=== PATIENT | female | born 1970 | race Caucasian/White ===

== ENCOUNTER 2020-05-14 09:56 | Outpatient (CLI) | payer OTHER, SELFPAY ==
--- NOTE | 2020-05-14 10:06 | MR_ITS ---
WS: [id number] MRI HEAD WITH CONTRAST TECHNIQUE: Sagittal T1, T2 axial, T2 axial FLAIR, axial susceptibility weighted imaging, axial diffus ion weighted images, and coronal T2 images were obtained. Pre and post-T1 axial and post T1 coronal i mages. ADC and FSPGR images. CLINICAL INFORMATION: BRAIN MASS COMPARISON: MRI April 17, 2019 FINDINGS: Again seen is the right parafalcine enhancing meningioma measuring 1.2 x 1.0 x 1.5 cm unchanged from previous. No significant surrounding edema or mass effect. Again seen is the enhancing lesion along t he left cavernous sinus and supraclinoid ICA extending to the orbital apex. This abuts the left ICA a nd M1 segment unchanged. This is also consistent with an additional meningioma. No underlying edema. This measures 1.3 x 1.5 x 0.8 cm unchanged. This contacts the prechiasmatic left optic nerve at the o rbital apex. No underlying edema. No restricted diffusion to suggest acute ischemia. Mild small vessel changes. Mild parenchymal volume loss. Normal posterior fossa. Normal vascular flow voids at the skull base. No extra-axial fluid col lections. No evidence of mass or mass effect. Paranasal sinuses and mastoid air cells are well aerate d. Temporal lobes and hippocampal formations are normal in appearance. Normal optic chiasm. No hemosi jaspreet on susceptibly weighted images. MR/MR head wo/w con [id number] IMPRESSION: 1. No change in the previously described right frontal parafalcine meningioma. No underlying edema. 2. In addition no change involving the left parasellar meningioma extending al meghan the supraclinoid left ICA and proximal left M1 segment. This extends superi rosa to the orbital apex unchanged. No underlying edema. Cavernous carotid gene ry appears patent. 3. No visualized edema in the left optic nerve. 4. Mild small vessel changes unchanged. 5. No other interval changes.
== END 2020-05-14 09:57 | disposition home or self-care (01) ==
LOC: RADSHAW 10:01
PROVIDERS: PCP Nurse Practitioner Family; Visit Provider Neurological Surgery
DX: G93.89 Other specified disorders of brain (principal)
CPT/HCPCS: 70553; A9579

== ENCOUNTER 2021-06-02 12:56 | Outpatient (CLI) | payer OTHER, SELFPAY ==
--- NOTE | 2021-06-02 | MR_ITS ---
WS: [id number] MRI BRAIN WITH AND WITHOUT CONTRAST HISTORY: BENIGN NEOPLASM OF MENINGES COMPARISON: 05/14/2020 TECHNIQUE: Multiplanar imaging performed through the brain with MultiHance 20 ml's IV. Stable RIGHT parafalcine enhancing meningioma measuring 15 x 13 x 14 mm. Diffuse moderate enhancement with no adjacent surrounding edema. Also again noted is the diffusely enhancing lesion along the LEF T cavernous sinus extending into the supraclinoid region and to the orbital apex. This is consistent with an additional meningioma which abuts the LEFT ICA and M1 segment. This lesion measures 13 x 10 x 11 mm without significant change. Although the measurements have not significantly changed the lesio n has slightly greater mass effect upon the posterior LEFT frontal lobe. There also may be slight bob rowing of the LEFT M1 segment. No susceptibility artifacts or prior lacunar infarcts. Normal ventricles. Clivus and pituitary gland are normal. Visualized posterior fossa and brainstem are also normal. Paranasal sinuses: Small air-fluid levels in the maxillary sinuses and mild mucoperiosteal thickening is new. There is mild mucoperiosteal thickening throughout the remaining sinuses. Mastoid air cells: Normal. Calvarium and scalp: Normal. MR/MR head wo/w con [id number] IMPRESSION: 1. Although the measurements have not significantly increased in size there ma y be slightly more mass effect upon the LEFT frontal lobe and encasement of the LEFT M1 segment secondary to the meningioma centered in the LEFT cavernous sin us. Meningioma measures 13 x 10 x 11 mm. Suggest six-month MRI follow-up with horacio chowdhury to continue to document for possible increase in size. 2. Stable RIGHT parafalcine meningioma measuring 15 x 13 x 14 mm. 3. New pansinusitis.
[2021-06-02] MEDS: gadobenate dimeglumine 20 mL vial IV (14:36)
== END 2021-06-02 12:57 | disposition home or self-care (01) ==
PROVIDERS: PCP Nurse Practitioner Family; Visit Provider Physician Assistant Surgical
DX: D32.9 Benign neoplasm of meninges, unspecified (principal); J32.4 Chronic pansinusitis
CPT/HCPCS: 70553; A9577

== ENCOUNTER → 2021-12-11 15:52 | Outpatient (BNVA) | payer OTHER, SELFPAY | PROVIDERS: PCP Nurse Practitioner Family; Visit Provider Nurse Practitioner Women's Health | DX: N93.9 Abnormal uterine and vaginal bleeding, unspecified (principal) | CPT/HCPCS: 76830 ==

== ENCOUNTER → 2021-12-16 12:13 | Outpatient (BNVA) | payer OTHER, SELFPAY | PROVIDERS: PCP Nurse Practitioner Family; Visit Provider Nurse Practitioner Women's Health | DX: N93.9 Abnormal uterine and vaginal bleeding, unspecified (principal) | CPT/HCPCS: 84443; 85025 ==

== ENCOUNTER 2022-01-16 15:34 | Outpatient (CLI) | payer OTHER, SELFPAY ==
--- NOTE | 2022-01-16 16:05 | MR_ITS ---
WS: [id number] MRI BRAIN WITH AND WITHOUT CONTRAST HISTORY: BENIGN NEOPLASM OF MENINGES COMPARISON: 06/02/2021, 05/14/2020 and 05/14/2019 TECHNIQUE: Multiplanar imaging performed through the brain with MultiHance 20 ml's IV. Stable RIGHT parafalcine enhancing meningioma with dural tail. Well-circumscribed intensely enhancing mass measures 16 x 14 x 15 mm which has slightly increased in size since 05/14/2020 (12 x 10 x 15 mm) . Most recent measurement on 06/02/2021, 15 x 13 x 14 mm. Very slight mass effect upon the RIGHT front al lobe. No midline shift or adjacent edema. There is an additional enhancing lesion along the LEFT cavernous sinus and supraclinoid LEFT carotid artery extending towards the orbital apex. This is a lobulated mass measuring 13 x 13 x 15 mm. As com pared to 05/14/2020 no significant increase in size. There is slight mass effect upon the LEFT A1 segm ent and supraclinoid carotid artery and proximal LEFT M1 segment. No occlusion. There is slight mass effect upon the LEFT optic nerve at the orbital apex. No progressive mass effect. No underlying edema . No acute infarcts. Very mild chronic microvascular ischemic changes in the white matter. No hemorrhag e. No new enhancing lesions. No hydrocephalus. Normal enhancement of the dural venous sinuses. Visualized brainstem is normal. Paranasal sinuses: Small air-fluid levels in the maxillary sinuses. Mastoid air cells: Normal. Calvarium and scalp: Normal. MR/MR head wo/w con [id number] IMPRESSION: 1. Mild increase in size of the LEFT RIGHT frontal parafalcine meningioma sinc e 05/14/2020. Meningioma measures 16 x 14 x 15 mm today with slight increase fro m 15 x 13 x 14 mm as noted on 05/14/2020. No adjacent edema. 2. No significant change in the LEFT parasellar meningioma partially encasing the LEFT supraclinoid ICA and the proximal LEFT A1 and M1 segments. Lobulated m ass measures 13 x 13 x 15 mm. 3. Small stable chronic small vessel ischemic disease.
[2022-01-16] MEDS: gadobenate dimeglumine 20 mL vial IV (17:24)
== END 2022-01-16 15:35 | disposition home or self-care (01) ==
PROVIDERS: PCP Nurse Practitioner Family; Visit Provider Neurological Surgery
DX: D32.9 Benign neoplasm of meninges, unspecified (principal); I67.82 Cerebral ischemia
CPT/HCPCS: 70553

== ENCOUNTER → 2022-02-06 14:03 | Outpatient (BNVA) | payer OTHER, SELFPAY | PROVIDERS: PCP Nurse Practitioner Family; Visit Provider Obstetrics & Gynecology | DX: Z20.822 Contact with and (suspected) exposure to COVID-19 (principal); N93.9 Abnormal uterine and vaginal bleeding, unspecified | CPT/HCPCS: 87635 ==

== ENCOUNTER 2022-02-10 09:42 | Day surgery (SDC) | payer OTHER, SELFPAY ==
[2022-02-09 13:27] VITALS: BMI 45.1
[2022-02-10] VITALS (9 sets, daily range): BP systolic 131–199; BP diastolic 92–121; PULSE 83–101; RESP 14–20; TEMP 36.1–36.6; O2SAT 94–100
[2022-02-10 10:09] LABS: OR HCG Qualitative Urine Negative (Negative)
[2022-02-10] MEDS: sodium chloride 0.9% 1,000 ML 30 ML IV (10:20)
[2022-02-10] MEDS: ketorolac 30 mg/mL INJ IVP (10:20)
[2022-02-10 10:30] LABS: Glucose Point of Care 107 mg/dL (70-110)
--- NOTE | 2022-02-10 10:53 | W.PM.OPSUD ---
Surgery/Procedure H&P Update DATE OF PROCEDURE: February 10, 2022 DATE H&P PERFORMED: 02/06/22 H&P UPDATE INFORMATION: I have reviewed H&P completed within last 30 days, I have examined patient prior to procedure and No changes to prior documentation PREOP DIAGNOSIS: AUB PLANNED PROCEDURE: Operation Date: 02/10/22 11:10 Proposed Procedures p Hysteroscopy w/ [id number]/abnormal ut bleeding(Not Applicable) - Porsha Kendall MD Related Problem List Diagnoses (1) Abnormal uterine bleeding (AUB):
[2022-02-10 10:55] LABS: Hematocrit 38.7 % (37.0-47.0); Hemoglobin 11.9 g/dL (11.5-15.3); Lymphocytes # 1.2 10^3/uL (0.8-4.8); Lymphocytes % 21.8 %; Mean Corpuscular HGB Conc 30.7 g/dL (30.0-36.0); Mean Corpuscular Hemoglobin 24.2 pg (28.0-34.0); Mean Corpuscular Volume 78.7 fl (81-99); Mean Platelet Volume 9.3 fL (7.4-10.4); Monocytes # 0.3 10^3/uL (0.2-0.9); Monocytes % 5.3 %; Neutrophils # 3.99 10^3/uL (1.8-7.7); Neutrophils % 72.5 %; Nucleated Red Blood Cells % 0 %; Platelet Count 314 10^3/cmm (130-400); Red Blood Count 4.92 10^6/uL (4.1-5.3); Red Cell Distribution Width 17.5 % (12.1-15.1); White Blood Count 5.5 10^3/uL (4.0-10.0)
--- NOTE | 2022-02-10 11:26 | P.ANESASSM_ITS ---
Pre-Anesthetic Assessment Height/Weight: Height 1.73 m Weight 134.717 kg Temp Pulse Resp BP Pulse Ox 97.9 F 96 18 199/121 99 02/10/22 10:04 02/10/22 10:04 02/10/22 10:04 02/10/22 10:04 02/10/22 10:04 Preop Diagnosis: AUB Operation Date: 02/10/22 11:10 Proposed Procedures p Hysteroscopy w/ [id number] ut bleeding(Not Applicable) - Porsha Kendall MD Familial anesthetic complications: None Was Beta Mitzy taken within 24 hours: N/A Was Clonidine taken within 24 hours: N/A Last intake: Intake Last Liquid Date 02/09/22 Last Liquid Time 23:00 Last Solid Date 02/09/22 Last Solid Time 22:00 Social No alcohol and No tobacco Exam alert, oriented x 3, clear to auscultation bilaterally and regular rate & rhythm Airway Submandibular: within normal limits Cervical ROM: within normal limits Mallampati: Class II Dentition: full CV/HEM Hypertension Metabolic Morbid Obesity Anesthetic Plan ASA status: 3 Anesthesia: General Risk of > 500 ml blood loss (7ml/kg in children): No Medications/Allergies Home Medications Medication Instructions Recorded Confirmed Last Taken Type ascorbate calcium (vitamin C) 500 500 mg PO DAILY 12/04/21 02/10/22 02/09/22 History mg tablet lisinopril 10 mg tablet 10 mg PO DAILY 12/04/21 02/10/22 02/09/22 History multivitamin combination no.56 1 tab PO DAILY 12/04/21 02/10/22 02/09/22 History (Honey Bears Multivitamin) clobetasol 0.05 % topical ointment 1 applic TOPICAL BID PRN #45 g 12/16/21 02/10/22 02/09/22 Rx Allergies Allergy/AdvReac Type Severity Reaction Status Date / Time No Known Allergies Allergy Verified 02/10/22 10:00 Current Medications Generic Name Dose Route Start Last Admin Trade Name Freq PRN Reason Stop Dose Admin Sodium Chloride 1,000 mls @ 30 mls/hr 02/10/22 10:00 02/10/22 10:20 Sodium Chloride 0.9% IV 02/11/22 09:59 30 mls/hr .Q24H SHAHBAZ Administration PFSH Anesthesia Medical History Hypertension Meningioma 2 separate brain lesions-- Neurology at [facility] Vitiligo Surgical History History of section 1994 1996 History of tonsillectomy and adenoidectomy History of tubal ligation 2006 Family History Mother Cancer, Onset Age: 40 Breast CA that mets-unknown if hormonal receptive,but likely Hypertension Grandmother Hypertension Stroke, Onset Age: 70 Cancer, Onset Age: 70 Breast CA Grandfather Hypertension Denies family history of Diabetes CAD (coronary artery disease) Clotting disorder Hyperlipidemia Chronic kidney disease (CKD) Suicide Bleeding disorder Family history of premature coronary artery disease Lung disease Female Reproductive History Date of last menstrual period: 02/09/22 Data Anesthesia : 02/10/22 10:35 Short CBC 02/10/22 Range/Units 10:35 WBC 5.5 (4.0-10.0) 10^3/uL Hgb 11.9 (11.5-15.3) g/dL Hct 38.7 (37.0-47.0) % MCV 78.7 L (81-99) fl Plt Count 314 (130-400) 10^3/cmm Neut % (Auto) 72.5 % Neut # (Auto) 3.99 (1.8-7.7) 10^3/uL Cardiac Studies: No Data to Display
[2022-02-10] MEDS: miSOPROStol 200 mcg Tablet 600 MCG VAGINAL (11:33)
--- NOTE | 2022-02-10 12:04 | P.OP_ITS ---
Operative Report Date of procedure: February 10, 2022 Pre-op diagnosis: Preop Diagnosis AUB Post-op diagnosis: same Post-op findings: Normal appearing endometrium with a single, large posterior fibroid. Procedure done: hysteroscopy, dilation and curettage with myosure Specimens removed/disposition: endometrial curettings to pathology Surgeon: Porsha Kendall Anesthesia: MAC Estimated blood loss (mL): 5 IV fluids (mL): 900 Complications: none Findings: 12 week sized uterus, posterior fibroid, 1400 hysteroscopy deficit Condition: stable Procedure: The patient was taken to the operating room where monitored anesthesia was administered and to be adequate. She was prepped and draped in the normal sterile fashion in the dorsal lithotomy position in [facility]. A weighted speculum was placed into the vagina and the anterior lip of the cervix grasped with a single-tooth tenaculum. The uterus was sounded to 12 cm. The cervix was dilated to 16 Polish. The hysteroscope was advanced into the endometrial cavity. There was a large posterior fibroid visualized. The MyoSure device was activated and the tissue was removed. Pictures were taken pre and post procedure. All instruments were removed. The patient tolerated the procedure well. Sponge lap and needle counts were correct x3. She was taken to the recovery room in stable condition.
--- NOTE | 2022-02-10 12:08 | PM.DCS ---
Discharge Providers Date of Admission: 02/10/22 Date of Discharge: February 10, 2022 Attending Provider at Admission: Faiza Attending Provider at Discharge: Porsha Kendall MD Primary Care Provider: JOHNY Olvera Diagnoses at Discharge Discharge Diagnosis (1) Abnormal uterine bleeding (AUB): Status: Acute Reason for Visit Reason for Visit: abnormal uterine bleeding Hospital Course Hospital Course The patient was admitted for surgery. She did well postoperatively and was ready for discharge Discharge Data Studies Completed and Pending Pending at discharge Category Date Time Status ES surgery / GI images Routine Exams 02/10/22 10:45 Taken Pathology: Surgical [PTH] Routine Pth 02/10/22 12:05 Ordered Laboratory Results WBC 5.5 10^3/uL (4.0-10.0) 02/10/22 10:35 RBC 4.92 10^6/uL (4.1-5.3) 02/10/22 10:35 Hgb 11.9 g/dL (11.5-15.3) 02/10/22 10:35 Hct 38.7 % (37.0-47.0) 02/10/22 10:35 MCV 78.7 fl (81-99) L 02/10/22 10:35 MCH 24.2 pg (28.0-34.0) L 02/10/22 10:35 MCHC 30.7 g/dL (30.0-36.0) 02/10/22 10:35 RDW 17.5 % (12.1-15.1) H 02/10/22 10:35 Plt Count 314 10^3/cmm (130-400) 02/10/22 10:35 MPV 9.3 fL (7.4-10.4) 02/10/22 10:35 Neut % (Auto) 72.5 % 02/10/22 10:35 Lymph % (Auto) 21.8 % 02/10/22 10:35 [place] % (Auto) 5.3 % 02/10/22 10:35 Eos % (Auto) 0.0 % 02/10/22 10:35 Baso % (Auto) 0.0 % 02/10/22 10:35 Neut # (Auto) 3.99 10^3/uL (1.8-7.7) 02/10/22 10:35 Lymph # (Auto) 1.2 10^3/uL (0.8-4.8) 02/10/22 10:35 [place] # (Auto) 0.3 10^3/uL (0.2-0.9) 02/10/22 10:35 Eos # (Auto) 0.0 10^3/uL (0.0-0.8) 02/10/22 10:35 Baso # (Auto) 0.0 10^3/uL (0.0-0.1) 02/10/22 10:35 Nucleated RBC % (auto) 0 % 02/10/22 10:35 Nucleated RBCs # 0.0 /100WBC 02/10/22 10:35 POC Glucose 107 mg/dL (70-110) 02/10/22 10:26 Urine HCG, Qual Negative (Negative) 02/10/22 09:49 Vitals Last Vital Signs Temp 97.9 F 02/10/22 10:04 Pulse 96 02/10/22 10:04 Resp 18 02/10/22 10:04 BP 199/121 02/10/22 10:04 Pulse Ox 99 02/10/22 10:04 Discharge Plan Discharge Patient Disposition: Home Condition: Stable Prescriptions: Continued clobetasol 0.05 % ointment 1 applic topical BID PRN (Reason: vulvitis) Qty: 45 0RF Rx Instructions: use thin film--- as directed lisinopril 10 mg tablet 10 mg PO DAILY 0RF ascorbate calcium (vitamin C) 500 mg tablet 500 mg PO DAILY 0RF Honey Bears Multivitamin Tablet,Chewable 1 tab PO DAILY 0RF Discharge Orders: Discharge Order (Routine); Ordered 02/10/22 Ordered By: Porsha Kendall Discharge Attestations Time Spent in Discharge Care*: less than 30 min Quality Metrics Clinical Quality Measures [ No reported AMI, CVA or VTE this stay] Coding Level of Care Code Acute Chg FW DC note Diagnoses Abnormal uterine bleeding (AUB) N93.9
--- NOTE | 2022-02-10 12:37 | PC.NURSE ---
pt rates pain is 6/10 declined pain medication in Phase 1, she states she believes she will feel better after she can urinate and is agreeable to move to Phase 2. This nurse helped pt to bathroom to urinate upon arrival to Phase 2
[2022-02-10] MEDS: ondansetron 2 mg/ML SDV 2 mL 4 MG IVP (12:43)
[2022-02-10] MEDS: HYDROmorphone 1 mg/mL INJ 1 mL 0.5 MG IVP (12:50)
--- NOTE | 2022-02-10 15:47 | ANE.PACU2 ---
Inpatient post-anesthesia follow up: Airway intact: Yes Vital signs: Temperature 97.0 F Pulse Rate 83 Respiratory Rate 18 Blood Pressure 137/95 Pulse Oximetry 97 Oxygen Delivery Me thod Room Air Oxygen Flow Rate Fraction of Inspir ed Oxygen Hydration adequate: Yes Nausea and vomiting: No Pain level: 3 Mental status: Baseline
== END 2022-02-10 13:20 | disposition home or self-care (01) ==
PROVIDERS: PCP Nurse Practitioner Family; Visit Provider Obstetrics & Gynecology
PROC: 0UDB8ZZ Extraction of Endometrium, Via Natural or Artificial Opening Endoscopic (ICD-10-PCS; CPT 58558; principal; 2022-02-10 11:00)
DX: D25.9 Leiomyoma of uterus, unspecified (principal); I10 Essential (primary) hypertension; E66.01 Morbid (severe) obesity due to excess calories; Z68.42 Body mass index [BMI] 45.0-49.9, adult
CPT/HCPCS: 58558; 36416; 81025; 82962; 84703; 85025; 88305; J0690; J1170; J1885; J2405; J2704; J3010; J3490; J7030

== ENCOUNTER 2023-02-15 15:42 | Outpatient (CLI) | payer OTHER, SELFPAY ==
--- NOTE | 2023-02-15 | MR_ITS ---
WS: [id number] MRI HEAD WITH CONTRAST TECHNIQUE: Sagittal T1, T2 axial, T2 axial FLAIR, axial susceptibility weighted imaging, axial diffus ion weighted images, and coronal T2 images were obtained. Pre and post-T1 axial and post T1 coronal i mages. ADC and FSPGR images. CLINICAL INFORMATION: BENIGN NEOPLASM OF MENINGES, UNSPECIFIED COMPARISON: MRI January 16, 2022 ,June 02, 2021, and April 17, 2020 FINDINGS: Again seen is the LEFT parasellar enhancing meningioma measuring 13.0 x 13.0 x 15.0 mm unchanged from previous. This extends along the left cavernous sinus and supraclinoid ICA extending to the orbital apex. This abuts and partially encases left supraclinoid ICA, A1, and M1 segment unchanged.This conta cts the prechiasmatic left optic nerve at the orbital apex. No underlying edema. Stable RIGHT parafalcine meningioma measuring 16.0 x 14.0 x 15.0 mm unchanged. No significant surroun ding edema. Adjacent sinus appears patent. No restricted diffusion to suggest acute ischemia. Mild small vessel changes. Mild parenchymal volume loss. Normal posterior fossa. Normal vascular flow voids at the skull base. No extra-axial fluid col lections. No evidence of mass or mass effect.Paranasal sinuses and mastoid air cells are well aerated . Temporal lobes and hippocampal formations are normal in appearance. No hemosiderin on susceptibly w eighted images. MR/MR head wo/w con [id number] IMPRESSION: 1. Stable LEFT parasellar meningioma encases the LEFT supraclinoid ICA, A1, M1 segments. This measures 13.0 x 13.0 x 15.0 mm. 2. Stable RIGHT frontal parafalcine meningioma. This measures 16.0 x 14.0 x 15 .0 mm unchanged from previous. No adjacent edema. Adjacent sinus appears patent . 3. No other significant changes compared to previous.
[2023-02-15] MEDS: gadobenate dimeglumine 20 mL vial IV (17:35)
== END 2023-02-15 15:43 | disposition home or self-care (01) ==
PROVIDERS: PCP Nurse Practitioner Family; Visit Provider Neurological Surgery
DX: D32.9 Benign neoplasm of meninges, unspecified (principal)
CPT/HCPCS: 70553; A9577

== ENCOUNTER 2023-09-10 11:19 | Outpatient (CLI) | payer OTHER, SELFPAY ==
--- NOTE | 2023-09-10 11:25 | MM_ITS ---
WS: [id number] BILATERAL 3D TOMOSYNTHESIS DIGITAL SCREENING MAMMOGRAPHY WITH CAD CLINICAL INFORMATION: SCREENING HISTORY: Screening mammogram. No current complaints. COMPARISON: 2009 TECHNIQUE: Bilateral CC and MLO views. FINDINGS: Scattered fibroglandular densities bilaterally. No suspicious focal mass, asymmetry, calcifications, or architectural distortion. No evidence of malignancy. Punctate calcifications. IMPRESSION: MM/[place] [id number] BI-RADS: 2-Benign FOLLOW UP: 1 Year Follow-up Recommend return to annual screening mammography.
== END 2023-09-10 11:20 | disposition home or self-care (01) ==
LOC: RAD 11:19
PROVIDERS: PCP Nurse Practitioner Family; Visit Provider Nurse Practitioner Family
DX: Z12.31 Encounter for screening mammogram for malignant neoplasm of breast (principal)
CPT/HCPCS: 77063; 77067

== ENCOUNTER 2024-03-27 15:00 | Outpatient (CLI) | payer OTHER, SELFPAY ==
--- NOTE | 2024-03-27 15:08 | MR_ITS ---
WS: [id number] MRI BRAIN WITH AND WITHOUT CONTRAST HISTORY: BENIGN NEOPLASM OF MENINGES COMPARISON: 02/15/2023 TECHNIQUE: Multiplanar imaging performed through the brain with MultiHance 20 ml's IV. No acute infarcts are seen. Lugo-white matter differentiation is well preserved. Mild small vessel is chemic disease. Mild atrophy. Normal posterior fossa. Temporal hippocampal formations are negative. N o atrophy. No susceptibility artifacts or prior lacunar infarcts. Ventricles and extra-axial spaces are normal. Clivus and pituitary gland are normal. Visualized posterior fossa and brainstem are also normal. Reidentified is a LEFT parasellar enhancing meningioma measuring 12 x 18 x 19 mm. This is unchanged o delaney several prior examination's. Mass extends along the LEFT cavernous sinus and into the supraclinoi d ICA to the orbital apex. Partially abuts and encases the LEFT supraclinoid ICA. The ICA is patent. No associated edema or mass effect. Reidentified is a stable RIGHT parafalcine meningioma measuring 18 x 14 x 17 mm. No adjacent edema in the frontal lobe. Sagittal sinus is negative and patent. Dural venous sinuses are normal. Paranasal sinuses: Minimal mucoperiosteal thickening in the frontal sinuses. No air-fluid levels. Mastoid air cells: Normal. Calvarium and scalp: Normal. MR/MR head wo/w con [id number] IMPRESSION: 1. Stable LEFT parasellar meningioma are seen encasing the LEFT supraclinoid I CA. Meningioma measures 12 x 18 x 19 mm. 2. Stable RIGHT frontal parafalcine meningioma. Meningioma measures 18 x 14 x 17 mm. 3. Mild small vessel ischemic disease and atrophy unchanged.
== END 2024-03-27 15:01 | disposition home or self-care (01) ==
PROVIDERS: PCP Nurse Practitioner Family; Visit Provider Neurological Surgery
DX: D32.9 Benign neoplasm of meninges, unspecified (principal); I67.89 Other cerebrovascular disease
CPT/HCPCS: 70553

== ENCOUNTER 2025-08-07 11:58 | Outpatient (CLI) | payer OTHER, SELFPAY ==
[2025-08-07 12:24] VITALS: BMI 45.9
--- NOTE | 2025-08-07 12:25 | ECG_ITS ---
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 Interpretive Statements Procedure: The patient was exercised by the Von protocol. Vital signs and ECG findings: Baseline blood pressure 170/113 with a heart rate of 124. The patient exercised for 4 minutes and 15 seconds. Patient had knee pain during stage I and shortness of breath during stage II Of exercise. Below average exercise capacity for age at least partly due to knee pain. at peak exercise the patient's blood pressure was 128/71 with a heart rate of 164 bpm. The maximum heart rate was 172 bpm which was 106% of maximal predicted heart rate. By the end of recovery the patient's blood pressure was 147/101 with a heart rate of 119 bpm. The resting EKG showed tachycardia and mild ST depression in the inferior and anterolateral leads, low voltage in the precordial leads, old anterior infarction can not be excluded. No ST-T wave changes during stress or recovery. CONCLUSION: 1. Exercise capacity was below average for age. 2. Heart rate was tachycardia at rest and normal in response to exercise. 3. Blood pressure response was abnormal, with a decrease in blood pressure with exercise. 4. No symptoms of chest pain during stress test. 5. Stress test without evidence of ischemia. Electronically Signed On 08-07-2025 20:58:05 CDT by Jemal Iyer M.D. [id number]
[2025-08-07 13:05] VITALS: BP 165/104; PULSE 119
== END 2025-08-07 11:59 | disposition home or self-care (01) ==
LOC: CDL 11:58
PROVIDERS: PCP Nurse Practitioner Family; Visit Provider Nurse Practitioner Family
DX: I10 Essential (primary) hypertension (principal); M25.569 Pain in unspecified knee; R06.02 Shortness of breath; R00.0 Tachycardia, unspecified; R94.31 Abnormal electrocardiogram [ECG] [EKG]
CPT/HCPCS: 93017

== ENCOUNTER 2025-10-05 10:49 | Outpatient (CLI) | payer OTHER, SELFPAY ==
--- NOTE | 2025-10-05 10:52 | MM_ITS ---
WS: [id number] BILATERAL SCREENING DIGITAL TOMOSYNTHESIS MAMMOGRAM WITH CAD HISTORY: SCREENING COMPARISON: 09/10/2023, 05/01/2010, 12/24/2006, Bilateral CC and MLO views with tomosynthesis and synthetic mammography submitted. Computer aided detection analyzed. Breast composition: There are scattered areas of fibroglandular density. No suspicious masses, microcalcifications or architectural distortion. Small asymmetries are noted bilaterally within each breast that have been visualized on prior imaging studies. No suspicious grouping of calcifications or mass. MM/MM [facility] tomosynthesis [id number] IMPRESSION: BI-RADS: 2 - Benign. FOLLOW UP: 1 Year Follow-up
== END 2025-10-05 10:50 | disposition home or self-care (01) ==
LOC: RAD 10:50
PROVIDERS: PCP Nurse Practitioner Family; Visit Provider Nurse Practitioner Family
DX: Z12.31 Encounter for screening mammogram for malignant neoplasm of breast (principal); R92.323 Mammographic fibroglandular density, bilateral breasts; N64.89 Other specified disorders of breast
CPT/HCPCS: 77063; 77067

== ENCOUNTER → 2025-10-18 11:13 | Outpatient (BNVA) | payer OTHER, SELFPAY | PROVIDERS: PCP Nurse Practitioner Family; Visit Provider Internal Medicine Cardiovascular Disease | DX: R07.9 Chest pain, unspecified (principal); I25.2 Old myocardial infarction; R94.31 Abnormal electrocardiogram [ECG] [EKG] | CPT/HCPCS: 93005 ==

== ENCOUNTER 2025-10-26 08:19 | Outpatient (CLI) | payer OTHER, SELFPAY ==
--- NOTE | 2025-10-26 08:30 | USCV_ITS ---
Corina Cordova Age: 55 Gender: F : 1970 Exam Date: 10/26/2025 09:01 Ordering Phys: Ike Whitmore MD ([email or web address]) Technologist: Rashel Osman Exam Location: [facility] [place] Indication: htn/ sob BP: 130 / 86 HR: 70 Rhythm: Sinus Technical Quality: Adequate MEASUREMENTS (Male / Female) Normal Values 2D ECHO LV Diastolic Diameter PLAX 5.5 cm 4.2 - 5.9 / 3.9 - 5.3 cm IVS Diastolic Thickness 1.3 cm 0.6 - 1.0 / 0.6 - 0.9 cm IVS Systolic Thickness 1.5 cm LVPW Diastolic Thickness 0.9 cm 0.6 - 1.0 / 0.6 - 0.9 cm LVPW Systolic Thickness 1.9 cm LVOT Diameter 2.0 cm LV Ejection Fraction 2D Teich 74.6 % LV Ejection Fraction MOD 4C 62.7 % LV Ejection Fraction MOD 2C 66.9 % LV Ejection Fraction 2C AL 68.2 % LA Diameter 4.9 cm RA Systolic Volume 4C AL 53.7 ml RA Systolic Volume 4C MOD 52.2 ml LA Sys Volume AL 76.8 cm cubed LA Sys Volume Index AL 33.6 cm cubed/m squared Aorta at Sinotubular Diameter 2.6 cm IVC Diameter 1.8 cm M-MODE LA Ao Ratio MM 1.6 AV Cusp Separation MM 2.0 cm DOPPLER AV Peak Velocity 124.0 cm/s LVOT Peak Velocity 116.0 cm/s AV Area Cont Eq vti 3.2 cm squared AV Area Cont Eq pk 2.9 cm squared MV Peak Velocity 103.0 cm/s MV Area PHT 5.5 cm squared Mitral E to A Ratio 1.2 TV Peak Velocity 239.5 cm/s TR Peak Velocity 255.0 cm/s TR Peak Gradient 26.0 mmHg TR Mean Velocity 193.0 cm/s TR Mean Gradient 16.0 mmHg TR Velocity Time Integral 60.0 cm PV Peak Velocity 118.0 cm/s RV Ejection Time 0.3 s FINDINGS Left Ventricle Normal left ventricular size, systolic function and ejection fraction 67%. Normal left ventricular diastolic function. Mild basal septal hypertrophy with no evidence of left ventricular outflow tract obstruction. Right Ventricle Normal right ventricular size and systolic function. RVSP could not be calculated due to incomplete tricuspid regurgitation velocity profile. Right Atrium Normal right atrial size. Left Atrium Normal left atrial size. IA Septum Normal appearance of the interatrial septum. Mitral Valve Normal mitral valve structure. Mild mitral valve regurgitation Aortic Valve Normal aortic valve structure. No aortic valve stenosis or regurgitation. Tricuspid Valve Normal tricuspid valve structure. No tricuspid valve stenosis or regurgitation. Pulmonic Valve Normal pulmonic valve structure. No pulmonic valve stenosis or regurgitation. Pericardium No pericardial effusion. Aorta Normal diameter of the aortic root and ascending thoracic aorta. IVC Normal IVC diameter. CONCLUSIONS Normal left ventricular size, systolic function and ejection fraction of 67%. Mild basal septal hypertrophy of the left ventricle with no left ventricular outflow tract obstruction. Normal right ventricular size and systolic function. No significant valvular abnormalities. Jemal Iyer MD, FACC (Electronically Signed) Final Date: 26 October 2025 18:19 S
== END 2025-10-26 08:20 | disposition home or self-care (01) ==
LOC: RAD 08:24
PROVIDERS: PCP Nurse Practitioner Family; Visit Provider Internal Medicine Cardiovascular Disease
DX: R06.09 Other forms of dyspnea (principal); R06.02 Shortness of breath; I11.9 Hypertensive heart disease without heart failure
CPT/HCPCS: 93306